=== PATIENT | female | born 1950 | race Caucasian/White ===

== ENCOUNTER 2023-02-14 10:04 | Observation (INO) | payer MEDICARE ==
[2023-02-14 11:28] LABS: #Basophils 0.1 thou/uL (0.0-0.2); #Eosinphils 0.2 thou/uL (0.0-0.7); #Lymphocytes 2.3 thou/uL (1.20-3.40); #Monocytes 0.7 thou/uL (0.11-0.59); #Neutrophils 5.1 thou/uL (1.40-6.50); %Basophils 0.9 % (0.0-1.0); %Eosinophils 2.6 % (0.0-10.0); %Lymphocytes 27.2 % (21.0-51.0); %Monocytes 7.7 % (0.0-10.0); %Neutrophils 61.6 % (42.0-75.0); Hemoglobin 11.5 g/dL (12.0-16.0); Mean Corpuscular HGB CONC 33.2 g/dL (32.0-36.0); Mean Corpuscular Hemoglobin 33.7 pg (27.0-31.0); Mean Platelet Volume 7.6 fL (7.4-10.4); Platelet Count 194 10x3/uL (130-400); RBC Distribution Width 14.8 % (11.5-14.5); Red Blood Cell (RBC) Count 3.41 mill/uL (4.20-5.40); White Blood Cell (WBC) Count 8.4 10x3/uL (4.8-10.8)
[2023-02-14 11:38] LABS: Prothrombin Time 13.3 sec (12.0-14.7)
[2023-02-14 11:39] LABS: PTT 65.5 sec (22.9-36.1)
[2023-02-14 12:35] LABS: ALT (SGPT) 11 U/L (8-55); AST (SGOT) 22 U/L (5-34); Albumin 4.6 g/dL (3.4-4.8); Alkaline Phosphatase 134 U/L (40-110); Anion Gap 19 mmol/L (10-20); BUN (Urea Nitrogen) 14 mg/dL (9.8-20.1); Bilirubin, Total 0.5 mg/dL (0.2-1.2); Calc. Creatinine Clearance 0 mL/min (70-130); Calcium 10.1 mg/dL (7.8-10.44); Carbon Dioxide 27 mmol/L (23-31); Chloride 98 mmol/L (98-107); Estimated GFR 13; Globulin 3.7 g/dL (2.4-3.5); Glucose 195 mg/dL (83-110); Potassium 4.1 mmol/L (3.5-5.1); Protein, Total 8.3 g/dL (5.8-8.1); Sodium 140 mmol/L (136-145)
[2023-02-14] MEDS ORDERED: Dextrose 5% in Water 1,000 ML IV PRN (14:41)
[2023-02-14] MEDS ORDERED: Dextrose 50% Abboject 50 ML SYRINGE SLOW IVP PRN (14:41)
[2023-02-14] MEDS ORDERED: Acetaminophen 325 MG TAB PO PRN (14:41)
[2023-02-14] MEDS ORDERED: hydrALAZINE 20 MG/ML VIAL SLOW IVP PRN (14:43)
[2023-02-14] MEDS ORDERED: HumaLOG 300 UNITS/3 ML VIAL SC PRN (14:43)
[2023-02-14] MEDS ORDERED: Metoclopramide HCl 10 MG/2 ML VIAL IVP PRN (14:53)
[2023-02-14 14:56] VITALS: BMI 34.4
[2023-02-14] MEDS ORDERED: Aspirin 325 mg Enteric Coated Tablet PO SCH (15:15)
[2023-02-14] MEDS ORDERED: Aspirin 325 MG TAB ONE (16:07)
[2023-02-14] MEDS: Sevelamer Carbonate 800 MG TAB PO SCH (16:38)
[2023-02-14] MEDS ORDERED: HumaLOG 300 UNITS/3 ML VIAL ONE (17:07)
[2023-02-14] MEDS: HumaLOG 300 UNITS/3 ML VIAL SC PRN (17:13)
[2023-02-14] MEDS ORDERED: Rosuvastatin 20 MG TAB PO SCH (21:00)
[2023-02-14] MEDS ORDERED: PARoxetine 20 MG TAB PO SCH (21:00)
[2023-02-14] MEDS: Heparin 5,000 UNITS/ML VIAL SC SCH (21:12)
[2023-02-15 05:22] LABS: #Basophils 0.1 thou/uL (0.0-0.2); #Eosinphils 0.2 thou/uL (0.0-0.7); #Lymphocytes 1.5 thou/uL (1.20-3.40); #Monocytes 0.6 thou/uL (0.11-0.59); #Neutrophils 4.3 thou/uL (1.40-6.50); %Basophils 0.9 % (0.0-1.0); %Eosinophils 3.1 % (0.0-10.0); %Lymphocytes 21.9 % (21.0-51.0); %Monocytes 9.6 % (0.0-10.0); %Neutrophils 64.5 % (42.0-75.0); Hemoglobin 10.2 g/dL (12.0-16.0); Mean Corpuscular Hemoglobin 33.5 pg (27.0-31.0); Platelet Count 159 10x3/uL (130-400); RBC Distribution Width 14.4 % (11.5-14.5); Red Blood Cell (RBC) Count 3.05 mill/uL (4.20-5.40); White Blood Cell (WBC) Count 6.7 10x3/uL (4.8-10.8)
[2023-02-15 05:49] LABS: Anion Gap 16 mmol/L (10-20); BUN (Urea Nitrogen) 25 mg/dL (9.8-20.1); Calc. Creatinine Clearance 13 mL/min (70-130); Calcium 8.8 mg/dL (7.8-10.44); Carbon Dioxide 26 mmol/L (23-31); Cardiac Risk 3.1 (Less than 4.5); Chloride 100 mmol/L (98-107); Cholesterol 141 mg/dl (< 200 Desired); Estimated GFR 7; Glucose 170 mg/dL (83-110); HDL Cholesterol 46 mg/dL (>60 Neg Risk); LDL Cholesterol, Calculated 52 mg/dL; Potassium 3.9 mmol/L (3.5-5.1); Sodium 138 mmol/L (136-145); Triglycerides 216 mg/dL (Less than 150)
[2023-02-15] MEDS ORDERED: Aspirin 325 mg Enteric Coated Tablet PO SCH (09:00)
[2023-02-15] MEDS: Sevelamer Carbonate 800 MG TAB PO SCH ×3 (09:25→17:11)
[2023-02-15] MEDS: Heparin 5,000 UNITS/ML VIAL SC SCH (09:25)
[2023-02-15] MEDS: HumaLOG 300 UNITS/3 ML VIAL SC PRN (11:27)
[2023-02-15 16:55] VITALS: BP 117/61; TEMP 98.3
== END 2023-02-15 19:41 | disposition home or self-care (01) ==
LOC: ERS 10:04 → ERHOLD 14:22 → 2SW 19:20
PROVIDERS: ADMIT Family Medicine; ATTEND Family Medicine
DX: I63.89 Other cerebral infarction (principal); R47.81 Slurred speech; I12.0 Hypertensive chronic kidney disease with stage 5 chronic kidney disease or end stage renal disease; E11.22 Type 2 diabetes mellitus with diabetic chronic kidney disease; N18.6 End stage renal disease; R00.0 Tachycardia, unspecified; E78.5 Hyperlipidemia, unspecified; D63.1 Anemia in chronic kidney disease; I34.0 Nonrheumatic mitral (valve) insufficiency; Z79.4 Long term (current) use of insulin; Z79.899 Other long term (current) drug therapy; Z99.2 Dependence on renal dialysis
CPT/HCPCS: 70450; 70551; 71045; 80048; 80053; 80061; 82962 ×2; 84443; 84484; 85025 ×2; 85610; 85730; 93005; 93306; 93880; 96372 ×2; 99285; G0378 ×3; 36415; 36416; J1644; J1815

== ENCOUNTER 2023-02-16 18:45 | Inpatient (IN) | payer MEDICARE ==
[~2023-02-16 18:45] MED LIST: Iopamidol-370 76% 500 ML MDV (1 ML CHARGE) ONE
[2023-02-16 19:31] LABS: #Eosinphils 0.2 thou/uL (0.0-0.7); #Lymphocytes 1.6 thou/uL (1.20-3.40); #Monocytes 0.6 thou/uL (0.11-0.59); #Neutrophils 4.5 thou/uL (1.40-6.50); %Basophils 0.6 % (0.0-1.0); %Eosinophils 2.7 % (0.0-10.0); %Lymphocytes 23.6 % (21.0-51.0); %Monocytes 8.6 % (0.0-10.0); %Neutrophils 64.6 % (42.0-75.0); Hemoglobin 10.3 g/dL (12.0-16.0); Mean Corpuscular HGB CONC 33.2 g/dL (32.0-36.0); Mean Corpuscular Hemoglobin 33.3 pg (27.0-31.0); Mean Platelet Volume 7.4 fL (7.4-10.4); Platelet Count 183 10x3/uL (130-400); RBC Distribution Width 14.1 % (11.5-14.5); White Blood Cell (WBC) Count 6.9 10x3/uL (4.8-10.8)
[2023-02-16 19:43] LABS: Prothrombin Time 13.1 sec (12.0-14.7)
[2023-02-16 19:44] LABS: PTT 26.3 sec (22.9-36.1)
[2023-02-16 20:00] LABS: ALT (SGPT) 10 U/L (8-55); AST (SGOT) 15 U/L (5-34); Albumin 4.1 g/dL (3.4-4.8); Alkaline Phosphatase 120 U/L (40-110); Anion Gap 19 mmol/L (10-20); BUN (Urea Nitrogen) 49 mg/dL (9.8-20.1); Bilirubin, Total 0.5 mg/dL (0.2-1.2); CK (CPK) 273 U/L (29-168); Calc. Creatinine Clearance 0 mL/min (70-130); Carbon Dioxide 26 mmol/L (23-31); Chloride 94 mmol/L (98-107); Estimated GFR 4; Globulin 2.9 g/dL (2.4-3.5); Glucose 187 mg/dL (83-110); Lipase 165 U/L (8-78); Potassium 3.7 mmol/L (3.5-5.1); Sodium 135 mmol/L (136-145)
[2023-02-16] MEDS ORDERED: Aspirin 300 MG Suppository ONE (20:09)
[2023-02-16] MEDS ORDERED: Ondansetron PF 4 MG/2 ML Vial ONE (20:09)
[2023-02-16 20:11] LABS: CKMB 2.3 ng/mL (0-6.6)
[2023-02-16] MEDS ORDERED: Ondansetron PF 4 MG/2 ML Vial IVP PRN (23:01)
[2023-02-16] MEDS ORDERED: Dextrose 50% Abboject 50 ML SYRINGE SLOW IVP PRN (23:02)
[2023-02-16] MEDS ORDERED: Dextrose 5% in Water 1,000 ML IV PRN (23:02)
[2023-02-16] MEDS ORDERED: HumaLOG 300 UNITS/3 ML VIAL SC PRN ×2 (23:02)
[2023-02-16 23:38] LABS: #Eosinphils 0.1 thou/uL (0.0-0.7); #Lymphocytes 1.4 thou/uL (1.20-3.40); #Monocytes 0.6 thou/uL (0.11-0.59); #Neutrophils 5.9 thou/uL (1.40-6.50); %Basophils 0.5 % (0.0-1.0); %Eosinophils 1.7 % (0.0-10.0); %Lymphocytes 17.2 % (21.0-51.0); %Monocytes 7.8 % (0.0-10.0); %Neutrophils 72.9 % (42.0-75.0); Mean Corpuscular HGB CONC 34.4 g/dL (32.0-36.0); Mean Corpuscular Volume 98.7 fl (78.0-98.0); Mean Platelet Volume 7.2 fL (7.4-10.4); Platelet Count 150 10x3/uL (130-400); Red Blood Cell (RBC) Count 2.95 mill/uL (4.20-5.40); White Blood Cell (WBC) Count 8.1 10x3/uL (4.8-10.8)
[2023-02-16 23:49] LABS: Anion Gap 19 mmol/L (10-20); BUN (Urea Nitrogen) 51 mg/dL (9.8-20.1); Calc. Creatinine Clearance 0 mL/min (70-130); Calcium 8.8 mg/dL (7.8-10.44); Carbon Dioxide 21 mmol/L (23-31); Chloride 98 mmol/L (98-107); Estimated GFR 4; Glucose 207 mg/dL (83-110); Sodium 134 mmol/L (136-145)
[2023-02-16 23:55] LABS: Troponin I 0.044 ng/mL (< 0.028)
[2023-02-17] MEDS ORDERED: HumaLOG 300 UNITS/3 ML VIAL ONE (00:08)
[2023-02-17 00:45] VITALS: BMI 34.8
[2023-02-17 06:09] LABS: Troponin I 0.038 ng/mL (< 0.028)
[2023-02-17] MEDS ORDERED: Aspirin 81 mg Enteric Coated Tablet PO SCH (09:30)
[2023-02-17] MEDS ORDERED: Clopidogrel Bisulfate 75 MG TAB PO SCH (10:30)
[2023-02-17] MEDS ORDERED: Clopidogrel Bisulfate 75 MG TAB ONE (11:42)
[2023-02-17] MEDS ORDERED: Aspirin 81 mg Enteric Coated Tablet ONE (11:57)
[2023-02-17] MEDS: Sevelamer Carbonate 800 MG TAB PO SCH ×2 (14:12→16:44)
[2023-02-17] MEDS ORDERED: HumuLIN 70/30 (300 UNITS/3 ML VIAL) SC SCH (16:30)
[2023-02-17] MEDS: HumuLIN 70/30 (300 UNITS/3 ML VIAL) SC SCH (17:26)
[2023-02-17] MEDS ORDERED: Rosuvastatin 20 MG TAB PO SCH (21:00)
[2023-02-18 05:35] LABS: Anion Gap 23 mmol/L (10-20); BUN (Urea Nitrogen) 66 mg/dL (9.8-20.1); Calc. Creatinine Clearance 7 mL/min (70-130); Calcium 8.6 mg/dL (7.8-10.44); Carbon Dioxide 18 mmol/L (23-31); Chloride 99 mmol/L (98-107); Estimated GFR 4; Glucose 91 mg/dL (83-110); Potassium 4.8 mmol/L (3.5-5.1); Sodium 135 mmol/L (136-145)
[2023-02-18] MEDS ORDERED: Lidocaine 1% w/Epinephrine 1:100K 20 ML VIAL ONE (06:59)
[2023-02-18 07:55] LABS: #Eosinphils 0.2 thou/uL (0.0-0.7); #Lymphocytes 1.3 thou/uL (1.20-3.40); #Monocytes 0.6 thou/uL (0.11-0.59); #Neutrophils 5.2 thou/uL (1.40-6.50); %Basophils 0.3 % (0.0-1.0); %Eosinophils 2.9 % (0.0-10.0); %Lymphocytes 17.7 % (21.0-51.0); %Monocytes 8.3 % (0.0-10.0); %Neutrophils 70.7 % (42.0-75.0); Hemoglobin 10.6 g/dL (12.0-16.0); Mean Corpuscular HGB CONC 33.3 g/dL (32.0-36.0); Mean Corpuscular Hemoglobin 33.4 pg (27.0-31.0); Mean Platelet Volume 7.5 fL (7.4-10.4); Platelet Count 181 10x3/uL (130-400); RBC Distribution Width 13.9 % (11.5-14.5); Red Blood Cell (RBC) Count 3.17 mill/uL (4.20-5.40); White Blood Cell (WBC) Count 7.3 10x3/uL (4.8-10.8)
[2023-02-18] MEDS ORDERED: Heparin 10,000 UNITS/ 10 ML VIAL ONE (08:51)
[2023-02-18] MEDS ORDERED: Non-Formulary Item 1 EACH (Paroxetine Hcl [Paroxetine Hcl] 40 MG Tablet) PO SCH (09:00)
[2023-02-18] MEDS ORDERED: Clopidogrel Bisulfate 75 MG TAB PO SCH (09:00)
[2023-02-18] MEDS ORDERED: Aspirin 81 mg Enteric Coated Tablet PO SCH (09:00)
[2023-02-18] MEDS ORDERED: PARoxetine 20 MG TAB PO SCH (09:00)
[2023-02-18 11:04] LABS: HBSAg Index 0.23 S/CO (0-0.99); Hep B Core Total Ab Non-Reactive (NonReactive); Hep B Core Total Index 0.09 S/CO (0-0.79); Hep B Surf Ag Non-Reactive S/CO (NonReactive); Hep C IgG Ab Non-Reactive (NonReactive); Hep C Index 0.11 S/CO (0-0.79)
[2023-02-18 11:10] LABS: HBSAB Concentration 92.55 mIU/mL; Hep B Surf AB Reactive (NonReactive)
[2023-02-18 13:42] VITALS: BP 120/66; TEMP 97.5
[2023-02-18] MEDS: HumuLIN 70/30 (300 UNITS/3 ML VIAL) SC SCH (14:10)
[2023-02-18] MEDS: Sevelamer Carbonate 800 MG TAB PO SCH (14:10)
== END 2023-02-18 15:50 | disposition home or self-care (01) | DRG 40 ==
LOC: ERS 18:45 → ERHOLD 21:58 → 2SW 02-17 16:09 → OBSVTOIN 02-18 09:33
PROVIDERS: ADMIT Hospitalist; ATTEND Family Medicine
PROC: 0JH602Z Insertion of Monitoring Device into Chest Subcutaneous Tissue and Fascia, Open Approach (ICD-10-PCS; principal; 2023-02-18)
DX: I63.9 Cerebral infarction, unspecified (principal); N18.6 End stage renal disease; G81.94 Hemiplegia, unspecified affecting left nondominant side; I12.0 Hypertensive chronic kidney disease with stage 5 chronic kidney disease or end stage renal disease; E11.22 Type 2 diabetes mellitus with diabetic chronic kidney disease; E78.5 Hyperlipidemia, unspecified; F41.9 Anxiety disorder, unspecified; R29.701 NIHSS score 1; R29.810 Facial weakness; Z79.4 Long term (current) use of insulin; Z79.82 Long term (current) use of aspirin; Z99.2 Dependence on renal dialysis
CPT/HCPCS: 33285; 36415; 36416; 70450; 70496; 70498; 70551; 71045; 80048; 80053; 80061; 82550; 82553; 83690; 84443; 84484; 85025; 85610; 85730; 86704; 90935; 93005; 93306; 93880; 96372; 96374; C1764; G0257; G0378; J1644; J1815; J2405; Q9967

== ENCOUNTER 2023-07-30 09:28 | Outpatient (CLI) | payer MEDICARE | END 2023-07-30 09:29 | disposition home or self-care (01) | LOC: EKG 09:28 | PROVIDERS: ATTEND Internal Medicine Nephrology | DX: Z01.810 Encounter for preprocedural cardiovascular examination (principal); Z01.812 Encounter for preprocedural laboratory examination; N18.6 End stage renal disease | CPT/HCPCS: 80053; 83735; 85025; 85610; 85730; 93005; 93010 ==

== ENCOUNTER 2023-11-27 08:05 | Day surgery (SDC) | payer MEDICARE ==
[2023-11-26 13:13] VITALS: BMI 34.8
[2023-11-27] MEDS ORDERED: Heparin 10,000 UNITS/ 10 ML VIAL ONE (09:10)
[2023-11-27] MEDS ORDERED: PHENYLEPHRINE-NS 100 MCG/ML 10 ML SYRINGE ONE (10:40)
[2023-11-27] MEDS ORDERED: PROPOFOL 200 MG/20 ML VIAL ONE (10:40)
[2023-11-27] MEDS ORDERED: Ondansetron PF 4 MG/2 ML Vial ONE (10:40)
[2023-11-27] MEDS ORDERED: Vasopressin 20 UNITS/ML VIAL ONE (11:17)
== END 2023-11-27 13:42 | disposition home or self-care (01) ==
LOC: SDC 08:05
PROVIDERS: ATTEND Internal Medicine Cardiovascular Disease
PROC: 02584ZZ Destruction of Conduction Mechanism, Percutaneous Endoscopic Approach (ICD-10-PCS; principal; 2023-11-27)
PROC: 02583ZZ Destruction of Conduction Mechanism, Percutaneous Approach (ICD-10-PCS; 2023-11-27)
DX: I48.3 Typical atrial flutter (principal); I12.0 Hypertensive chronic kidney disease with stage 5 chronic kidney disease or end stage renal disease; E11.22 Type 2 diabetes mellitus with diabetic chronic kidney disease; N18.6 End stage renal disease; E78.00 Pure hypercholesterolemia, unspecified; E03.9 Hypothyroidism, unspecified; Z99.2 Dependence on renal dialysis; Z79.01 Long term (current) use of anticoagulants; Z79.4 Long term (current) use of insulin; Z79.82 Long term (current) use of aspirin; Z79.899 Other long term (current) drug therapy; Z86.73 Personal history of transient ischemic attack (TIA), and cerebral infarction without residual deficits; Z98.890 Other specified postprocedural states; Z92.89 Personal history of other medical treatment
CPT/HCPCS: 82962; 93005; 93653; C1731; C1760; C1894 ×4; C2630; 36416; J1644; J2405; J2704

== ENCOUNTER 2023-12-03 20:01 | Observation (INO) | payer MEDICARE ==
[2023-12-03 20:53] LABS: #Eosinphils 0.1 thou/uL (0.0-0.7); #Monocytes 0.7 thou/uL (0.11-0.59); #Neutrophils 5.9 thou/uL (1.40-6.50); %Basophils 0.5 % (0.0-1.0); %Lymphocytes 18.7 % (21.0-51.0); %Monocytes 8.6 % (0.0-10.0); %Neutrophils 70.5 % (42.0-75.0); Hematocrit 33.4 % (36.0-47.0); Mean Corpuscular HGB CONC 32.9 g/dL (32.0-36.0); Mean Corpuscular Hemoglobin 32.4 pg (27.0-31.0); Mean Corpuscular Volume 98.5 fl (78.0-98.0); Mean Platelet Volume 9.7 fL (7.4-10.4); Platelet Count 160 10x3/uL (130-400); RBC Distribution Width 17.8 % (11.5-14.5); Red Blood Cell (RBC) Count 3.39 mill/uL (4.20-5.40); White Blood Cell (WBC) Count 8.4 10x3/uL (4.8-10.8)
[2023-12-03 21:24] LABS: ALT (SGPT) 7 U/L (8-55); AST (SGOT) 10 U/L (5-34); Albumin 3.9 g/dL (3.4-4.8); Alkaline Phosphatase 102 U/L (40-110); Anion Gap 18 mmol/L (10-20); BUN (Urea Nitrogen) 22 mg/dL (9.8-20.1); Bilirubin, Total 0.6 mg/dL (0.2-1.2); Calc. Creatinine Clearance 0 mL/min (70-130); Calcium 8.9 mg/dL (7.8-10.44); Carbon Dioxide 25 mmol/L (23-31); Chloride 99 mmol/L (98-107); Estimated GFR 6; Globulin 3.1 g/dL (2.4-3.5); Glucose 207 mg/dL (83-110); Magnesium 1.8 mg/dL (1.6-2.6); Potassium 3.6 mmol/L (3.5-5.1); Sodium 138 mmol/L (136-145)
[2023-12-03 21:30] LABS: Critical Call Chem Troponin I ERS.ZCV@2130; Troponin I 0.636 ng/mL (< 0.028)
[2023-12-03] MEDS ORDERED: Acetaminophen 325 MG TAB PO PRN (22:07)
[2023-12-03] MEDS ORDERED: Acetaminophen 650 MG Suppository PR PRN (22:07)
[2023-12-03] MEDS ORDERED: Ondansetron PF 4 MG/2 ML Vial IVP PRN (22:07)
[2023-12-03] MEDS ORDERED: Ondansetron ODT 4 MG TAB PO PRN (22:07)
[2023-12-04] MEDS ORDERED: Furosemide 40 MG (4 mL) VIAL SLOW IVP SCH (01:00)
[2023-12-04] MEDS ORDERED: Furosemide 40 MG (4 mL) VIAL ONE (02:44)
[2023-12-04] MEDS ORDERED: Dextrose 50% Abboject 50 ML SYRINGE SLOW IVP PRN (03:01)
[2023-12-04] MEDS ORDERED: Dextrose 5% in Water 1,000 ML IV PRN (03:01)
[2023-12-04] MEDS ORDERED: HumaLOG 300 UNITS/3 ML VIAL SC PRN ×2 (03:01)
[2023-12-04] MEDS ORDERED: Glucagon 1 MG/ML KIT IM PRN (03:01)
[2023-12-04] MEDS ORDERED: Metoprolol Tartrate 5 MG (5 mL) VIAL IVP PRN (04:37)
[2023-12-04 04:48] LABS: #Eosinphils 0.1 thou/uL (0.0-0.7); #Monocytes 0.9 thou/uL (0.11-0.59); #Neutrophils 5.3 thou/uL (1.40-6.50); %Basophils 0.5 % (0.0-1.0); %Eosinophils 1.6 % (0.0-10.0); %Lymphocytes 21.4 % (21.0-51.0); %Neutrophils 64.8 % (42.0-75.0); Hematocrit 33.5 % (36.0-47.0); Hemoglobin 10.8 g/dL (12.0-16.0); Mean Corpuscular HGB CONC 32.2 g/dL (32.0-36.0); Mean Corpuscular Hemoglobin 32.5 pg (27.0-31.0); Mean Corpuscular Volume 100.9 fl (78.0-98.0); Mean Platelet Volume 9.3 fL (7.4-10.4); Platelet Count 156 10x3/uL (130-400); RBC Distribution Width 17.8 % (11.5-14.5); Red Blood Cell (RBC) Count 3.32 mill/uL (4.20-5.40); White Blood Cell (WBC) Count 8.2 10x3/uL (4.8-10.8)
[2023-12-04] MEDS ORDERED: Sodium Chloride 0.9% 500 ML IV SCH (05:00)
[2023-12-04 05:02] LABS: Anion Gap 18 mmol/L (10-20); BUN (Urea Nitrogen) 27 mg/dL (9.8-20.1); Calc. Creatinine Clearance 11 mL/min (70-130); Carbon Dioxide 27 mmol/L (23-31); Chloride 98 mmol/L (98-107); Estimated GFR 6; Glucose 179 mg/dL (83-110); Sodium 139 mmol/L (136-145)
[2023-12-04 05:04] LABS: Critical Call Chem Troponin I RESULT DECREASING; Troponin I 0.576 ng/mL (< 0.028)
[2023-12-04] MEDS: Furosemide 40 MG (4 mL) VIAL SLOW IVP SCH (09:32)
[2023-12-04] MEDS: Apixaban 2.5 MG TAB PO SCH ×2 (09:38→20:17)
[2023-12-04] MEDS: Sevelamer Carbonate 800 MG TAB PO SCH ×2 (13:14→18:24)
[2023-12-04 15:06] VITALS: BMI 35.9
[2023-12-04] MEDS ORDERED: HumuLIN 70/30 100 Unit/ml 10 ml Vial SC SCH ×2 (16:30→17:00)
[2023-12-04] MEDS ORDERED: Montelukast Sodium 10 mg Tablet PO SCH (21:00)
[2023-12-05] MEDS ORDERED: HumuLIN 70/30 100 Unit/ml 10 ml Vial SC SCH (07:30)
[2023-12-05] MEDS: Sevelamer Carbonate 800 MG TAB PO SCH ×2 (07:57→12:17)
[2023-12-05] MEDS: Apixaban 2.5 MG TAB PO SCH (07:58)
[2023-12-05] MEDS: Furosemide 40 MG (4 mL) VIAL SLOW IVP SCH (07:58)
[2023-12-05 09:45] VITALS: TEMP 98.2
[2023-12-05] MEDS ORDERED: Heparin 10,000 UNITS/ 10 ML VIAL ONE (11:17)
[2023-12-05 13:48] VITALS: BP 127/58
== END 2023-12-05 18:22 | disposition home or self-care (01) ==
LOC: ERS 20:01 → ERHOLD 22:11 → 2SW 12-04 13:55
PROVIDERS: ADMIT Student in an Organized Health Care Education/Training Program; ATTEND Hospitalist
PROC: B246YZZ Ultrasonography of Right and Left Heart using Other Contrast (ICD-10-PCS; principal; 2023-12-03)
DX: I21.4 Non-ST elevation (NSTEMI) myocardial infarction (principal); N18.6 End stage renal disease; Z99.2 Dependence on renal dialysis; I48.92 Unspecified atrial flutter; E11.22 Type 2 diabetes mellitus with diabetic chronic kidney disease; R79.89 Other specified abnormal findings of blood chemistry; I10 Essential (primary) hypertension; R00.0 Tachycardia, unspecified; D63.1 Anemia in chronic kidney disease; Z86.73 Personal history of transient ischemic attack (TIA), and cerebral infarction without residual deficits; E03.9 Hypothyroidism, unspecified; Z79.899 Other long term (current) drug therapy; Z79.82 Long term (current) use of aspirin
CPT/HCPCS: 71045; 80048; 80053; 82962 ×2; 83735; 83880; 84484 ×2; 85025 ×2; 93005; 93306; 96374; 96376; G0378 ×4; 36415; 36416; 90935; G0257; J1644; J1815; J1940; J7030

== ENCOUNTER 2025-07-27 18:41 | Emergency (ER) | payer OTHER ==
[2025-07-27] MEDS ORDERED: Clindamycin 150 MG CAP ONE (21:25)
[2025-07-28 00:30] LABS: Hep B Core Total Index 0.09 S/CO (0-0.79); Hep C Index 0.16 S/CO (0-0.79)
[2025-07-28 01:23] LABS: HBSAB Concentration 9.97 mIU/mL; Hep B Surf Ag NONREACTIVE S/CO (NonReactive)
[2025-07-28 01:30] LABS: Hep B Core Total Ab NONREACTIVE (NonReactive); Hep C IgG Ab NONREACTIVE S/CO (NonReactive)
== END 2025-07-27 21:31 | disposition home or self-care (01) ==
LOC: ERS 18:41
DX: S30.0XXA Contusion of lower back and pelvis, initial encounter (principal); L03.116 Cellulitis of left lower limb; I12.0 Hypertensive chronic kidney disease with stage 5 chronic kidney disease or end stage renal disease; N18.6 End stage renal disease; E11.22 Type 2 diabetes mellitus with diabetic chronic kidney disease; I48.91 Unspecified atrial fibrillation; Z86.73 Personal history of transient ischemic attack (TIA), and cerebral infarction without residual deficits; Z99.2 Dependence on renal dialysis; Z79.4 Long term (current) use of insulin; Z79.899 Other long term (current) drug therapy; Z79.01 Long term (current) use of anticoagulants; W19.XXXA Unspecified fall, initial encounter
CPT/HCPCS: 36415; 72100; 86704; 86706; 86803; 87340; 99283

== ENCOUNTER 2025-10-09 10:00 | Outpatient (CLI) | payer OTHER ==
[~2025-10-09 10:00] MED LIST changes: +Iopamidol 370 76% 100 ML VIAL ONE; -Iopamidol-370 76% 500 ML MDV (1 ML CHARGE) ONE
== END 2025-10-09 10:01 | disposition home or self-care (01) ==
LOC: CT 10:00
PROVIDERS: ATTEND Nurse Practitioner Family
DX: I70.211 Atherosclerosis of native arteries of extremities with intermittent claudication, right leg (principal); K86.89 Other specified diseases of pancreas; K80.20 Calculus of gallbladder without cholecystitis without obstruction; J90 Pleural effusion, not elsewhere classified; J98.11 Atelectasis; N28.1 Cyst of kidney, acquired
CPT/HCPCS: 75635; Q9967

== ENCOUNTER 2025-11-02 16:35 | Emergency (ER) | payer OTHER ==
[2025-11-02 18:27] LABS: #Basophils 0.03 10x3/uL (0.0-0.2); #Eosinophils 0.09 10x3/uL (0.0-0.7); #Monocytes 0.46 10x3/uL (0.11-0.59); #Neutrophils 3.55 10x3/uL (1.40-6.50); %Basophils 0.6 % (0.0-1.0); %Eosinophils 1.7 % (0.0-10.0); %Lymphocytes 23.2 % (21.0-51.0); %Monocytes 8.5 % (0.0-10.0); %Neutrophils 65.4 % (42.0-75.0); Hematocrit 34.0 % (36.0-47.0); Hemoglobin 11.1 g/dL (12.0-16.0); Mean Corpuscular Hemoglobin 32.6 pg (27.0-31.0); Mean Corpuscular Volume 99.7 fL (78.0-98.0); Platelet Count 173 10x3/uL (130-400); Red Blood Cell (RBC) Count 3.41 mill/uL (4.20-5.40); White Blood Cell (WBC) Count 5.42 10x3/uL (4.8-10.8)
[2025-11-02 18:42] LABS: ALT (SGPT) Less than 7 U/L (Less than 34); AST (SGOT) 19 U/L (11-34); Albumin 2.9 g/dL (3.1-4.5); Alkaline Phosphatase 119 U/L (40-110); Anion Gap 18 mmol/L (10-20); BUN (Urea Nitrogen) 29 mg/dL (9.8-20.1); Bilirubin, Total 0.5 mg/dL (0.3-1.2); Calc. Creatinine Clearance 0 mL/min (70-130); Calcium 9.0 mg/dL (7.8-10.44); Carbon Dioxide 25 mmol/L (23-31); Chloride 100 mmol/L (98-107); Globulin 3.5 g/dL (2.4-3.5); Glucose 108 mg/dL (83-110); Potassium 4.1 mmol/L (3.5-5.1); Sodium 139 mmol/L (136-145)
== END 2025-11-03 00:49 | disposition short-term general hospital (02) ==
LOC: ERS 16:35
DX: T82.510A Breakdown (mechanical) of surgically created arteriovenous fistula, initial encounter (principal); I12.0 Hypertensive chronic kidney disease with stage 5 chronic kidney disease or end stage renal disease; E11.22 Type 2 diabetes mellitus with diabetic chronic kidney disease; N18.6 End stage renal disease; I48.91 Unspecified atrial fibrillation; Z99.2 Dependence on renal dialysis; Z86.73 Personal history of transient ischemic attack (TIA), and cerebral infarction without residual deficits; Z79.4 Long term (current) use of insulin; Z79.01 Long term (current) use of anticoagulants; Z79.899 Other long term (current) drug therapy
CPT/HCPCS: 71045; 80053; 85025; 93931